=== PATIENT | female | born 1940 | race Hispanic/Latino ===

== ENCOUNTER 2018-12-10 13:32 | Outpatient (CLI) | payer MEDICARE, MEDICAID ==
--- NOTE | 2018-12-10 14:42 | RAD ---
Exam: LUMBAR SPINE 3 VIEWS: COMPARISON: 11/14/2007 FINDINGS: Upright neutral, upright flexion and upright extension views of lumbar spine demonstrate 5 lumbar type vertebral bodies. Moderate degenerative disc disease at L2-L3. In the neutral position, 4 mm of anterolisthesis of L4 upon L5. Upon extension, 3.9 mm anterolisthesis of L4 upon L5. Upon fle xion, approximately 5 mm of anterolisthesis of L4 upon L5. Overall evaluation is limited due to technique and bone demineralization. IMPRESSION: Grade 1 anterolisthesis of L4 upon L5. Transcribed Date/Time: 12/10/2018 3:23 PM
--- NOTE | 2018-12-10 14:54 | MRI ---
MRI LUMBAR SPINE NONCONTRAST: HISTORY: Lumbar spondylosis. Bilateral knee pain, x3 months. Low back pain. COMPARISON: 09/18/2005. FINDINGS: Appropriate T1 marrow signal intensity of the lumbar vertebra. Lumbar spine vertebral body height is maintained. No fracture. Appropriate signal intensity of the visualized paraspinal muscles. Appropriate signal intensity in the visualized solid organs. Conus medullaris terminates at the inferior aspect of L1. T10-T11: No significant central canal stenosis or neural foraminal narrowing. T11-T12: Small left paracentral disc bulge. Mild facet hypertrophy. No significant central canal sten osis. Mild bilateral foraminal narrowing. T12-L1:No significant central canal stenosis or neural foraminal narrowing L1-L2:Desiccation with moderate loss of disc space height. Small left to right paracentral disc bulge s. Mild central canal stenosis. Right neural foramen is patent. Mild left foraminal narrowing. L2-L3:Desiccation with moderate loss of disc space height. Broad-based disc bulge, ligament flavum th ickening and facet hypertrophy result in moderate central canal stenosis. Narrowing of both subarticular zones with mass effect, without obscuration of bilateral traversing L3 nerve roots. Mode rate right and left foraminal narrowing. L3-L4:Desiccation with mild loss of disc space height. Generalized disc bulge, ligament flavum thicke aida and facet hypertrophy result in mild central canal stenosis. Mild bilateral foraminal narrowing. L4-L5:Desiccation with severe loss of disc space height. Generalized disc bulge, ligament flavum thic kening and facet hypertrophy result in severe central canal stenosis. Severe right and moderate left foraminal narrowing. L5-S1:Interval progression in terms of loss of disc space height. Nevertheless, no high-grade central canal stenosis. Narrowing of the right subarticular zone without complete obscuration of the traversing right S1 nerve root. Moderate right and mild to moderate left foraminal narrowing. IMPRESSION: 1. Interval progression in terms of degenerative changes throughout the lumbar spine. There is sever e central canal stenosis at L4-L5. Severe right foraminal narrowing at L4-L5. 2. Varying degrees of neural foraminal narrowing as described above. Transcribed Date/Time: 12/10/2018 3:37 PM
== END 2018-12-10 13:33 | disposition home or self-care (01) ==
LOC: TBSIIMAG 13:32
PROVIDERS: ATTEND Neurological Surgery
DX: M47.816 Spondylosis without myelopathy or radiculopathy, lumbar region (principal); M43.16 Spondylolisthesis, lumbar region; M48.061 Spinal stenosis, lumbar region without neurogenic claudication; M48.07 Spinal stenosis, lumbosacral region
CPT/HCPCS: 72100; 72148